=== PATIENT | male | born 1960 ===

== ENCOUNTER → 2024-06-24 | Day surgery (SDC) | payer OTHER ==
[2024-06-22 10:48] LABS: Absolute Basophils 0.1 K/uL (0-0.5); Absolute Eosinophils 0.2 K/uL (0-0.5); Absolute Monocytes 0.8 K/uL (0.1-1.3); Absolute Neutrophil 6.9 K/uL (1.8-8.0); Basophils % 0.7 % (0-1.3); Eosinophils % 1.8 % (0-4.4); Hematocrit 43.7 % (39.6-49.0); Hemoglobin 14.8 g/dL (13.6-17.9); Lymphocytes % 11.4 % (15.3-44.8); MCH 31.8 pg (27.0-35.0); MCV 93.5 fL (80-100); MPV 7.6 fL (7.6-11.3); Neutrophils % 77.1 % (41.7-73.7); Platelets 224 thou/uL (152-406); RBC Red Blood Cell Count 4.67 M/uL (4.33-5.43); Red Cell Distribution Width 13.2 % (12.1-15.2)
[2024-06-22 11:06] LABS: Anion Gap 7.9 mEq/L (5.0-15.0); Potassium 3.9 mEq/L (3.5-5.1)
--- NOTE | 2024-06-22 14:45 | EKG ---
Test Date: 2024-06-22 Test Time: 10:27:49 Director Dietetics Department: [facility] MEASUREMENT RESULTS: Intervals: Rate: 73 OK: 174 QRSD: 104 QT: 406 QTc: 447 [place]: P: 36 OK: 174 QRS: 25 T: 20 INTERPRETIVE STATEMENTS: Normal sinus rhythm Normal ECG No previous ECG available for comparison Electronically Signed On 06-22-24 14:45:09 CDT by Celso Ruiz
[~2024-06-24] MED LIST: LIDOCAINE 1% MPF 5 ML VIAL ONE; propofoL 200 MG/20 ML VIAL IV ONE
[2024-06-24] MEDS: Ringers Lactate 1,000 ML IV ONE (07:55)
[2024-06-24 10:52] VITALS: O2SAT 99
[2024-06-24 10:53] VITALS: BP 112/89; TEMP 98.2
== END ==
LOC: OR 07:41
PROVIDERS: ATTEND Surgery
PROC: 0DBL8ZX Excision of Transverse Colon, Via Natural or Artificial Opening Endoscopic, Diagnostic (ICD-10-PCS; 2024-06-24)
PROC: 0DBH8ZX Excision of Cecum, Via Natural or Artificial Opening Endoscopic, Diagnostic (ICD-10-PCS; principal; 2024-06-24 09:15)
DX: Z12.11 Encounter for screening for malignant neoplasm of colon (principal); K57.30 Diverticulosis of large intestine without perforation or abscess without bleeding; K64.4 Residual hemorrhoidal skin tags; D12.0 Benign neoplasm of cecum; D12.3 Benign neoplasm of transverse colon
CPT/HCPCS: 93005; 85025; 80048; 36415; 88305; 45380; J2704; J2003; J7120